=== PATIENT | male | born 1965 | race Caucasian/White ===

== ENCOUNTER → 2018-12-19 | Outpatient (CLI) | payer OTHER ==
[~2018-12-19] MED LIST: ATOR10TA PO; CARV3.12 PO; DIPH360L2 PO; LISI10TA2 PO; MULT1TAB69 PO; WARF-48 PO; WARF10TA44 PO
[2018-12-19 10:04] LABS: ALANINE AMINOTRANSFERASE 24 U/L (0-55); ALBUMIN 4.5 GM/DL (3.2-4.5); ALKALINE PHOSPHATASE 76 U/L (40-136); BILIRUBIN,TOTAL 0.5 MG/DL (0.1-1.0); BUN/CREATININE RATIO 18; CALCIUM 9.2 MG/DL (8.5-10.1); CARBON DIOXIDE 24 MMOL/L (21-32); CHLORIDE 107 MMOL/L (98-107); CHOLESTEROL 140 MG/DL (< 200); CREATININE SERUM 0.79 MG/DL (0.60-1.30); GFR ESTIMATED > 60; GLUCOSE 105 MG/DL (70-105); HDL CHOLESTEROL 45 MG/DL (40-60); POTASSIUM 4.4 MMOL/L (3.6-5.0); SODIUM 138 MMOL/L (135-145); TRIGLYCERIDES 82 MG/DL (<150); VLDL CHOLESTEROL 16 MG/DL (5-40)
== END ==
LOC: CARD 09:27
PROVIDERS: ATTEND Physician Assistant
DX: I10 Essential (primary) hypertension (principal); E78.2 Mixed hyperlipidemia; Z95.2 Presence of prosthetic heart valve; Z86.73 Personal history of transient ischemic attack (TIA), and cerebral infarction without residual deficits
CPT/HCPCS: 36415; 80053; 80061; 93306; 93351

== ENCOUNTER 2018-12-21 10:24 | Day surgery (SDC) | payer OTHER ==
[~2018-12-21] VITALS: Ht 177.8 cm; Wt 88.0 kg
[2018-12-21] VITALS (10 sets, daily range): BP systolic 120–154; BP diastolic 75–95
[2018-12-21] MEDS ORDERED: HEParin (CATH LAB) 2,000 ML IV ONE (10:26)
[2018-12-21] MEDS ORDERED: NS IV 1000 ML 1,000 ML ONE (10:26)
[2018-12-21] MEDS ORDERED: LIDOCAINE 1% INJ 20 ML 20 ML VIAL ONE (10:26)
[2018-12-21] MEDS ORDERED: NS IV 1000 ML 1,000 ML IV SCH ×2 (10:45→14:58)
[2018-12-21 10:59] LABS: BILIRUBIN,URINE NEGATIVE (NEGATIVE); CLARITY,URINE CLEAR; COLOR,URINE YELLOW; GLUCOSE, URINE (UA) NEGATIVE (NEGATIVE); HEMOGLOBIN 16.5 G/DL (13.3-17.7); KETONES,URINE NEGATIVE (NEGATIVE); LEUKOCYTE ESTERASE ,URINE 1+ (NEGATIVE); NITRITE,URINE NEGATIVE (NEGATIVE); PH,URINE 6.5 (5-9); PROTEIN,URINE 1+ (NEGATIVE); RED CELL DISTRIBUTION WIDTH 12.7 % (10.0-14.5); WHITE BLOOD COUNT 5.6 10^3/uL (4.3-11.0)
[2018-12-21] MEDS ORDERED: LISI10TA2 PO (11:05)
[2018-12-21] MEDS ORDERED: ATOR10TA PO (11:05)
[2018-12-21 11:08] LABS: BACTERIA,URINE TRACE /HPF; RBC,URINE RARE /HPF; SQUAMOUS EPITHELIAL CELL,UR RARE /HPF; WBC,URINE RARE /HPF
[2018-12-21] MEDS ORDERED: WARF-48 PO (11:15)
[2018-12-21] MEDS ORDERED: WARF10TA44 PO (11:15)
[2018-12-21] MEDS ORDERED: DIPH360L2 PO (11:15)
[2018-12-21] MEDS ORDERED: MULT1TAB69 PO (11:15)
--- NOTE | 2018-12-21 11:16 | NUR ---
SPOKE WITH PT ( HAD HIS BOTTLES) WELL CALLING [facility] TO COMPLETE THE MED REC. THE WARFARIN DOES IS FOLLOWS: WARFARIN 10MG: WEDNESDAY THRU WEDNESDAY WARFARIN 5MG: WEDNESDAY AND WEDNESDAY THE FOLLOWING ARE FILL DATES FROM [facility]: 09-28-2018 WARFARIN 5MG#30 10-16-2018 ATORVASTATIN #30/30DS 11-11-2018 LISINOPRIL #90/90DS 11-21-2018 WARFARIN 10MG #20 OTC MEDS: MUCINEX LIQUID UD MTV: 1 DAILY
[2018-12-21 11:17] LABS: PROTHROMBIN TIME PATIENT 23.8 SEC (12.2-14.7)
--- NOTE | 2018-12-21 11:19 | Diagnostic Imaging Report ---
INDICATION: Abnormal stress test with hypertension and coronary artery disease. No prior studies are available for comparison. Time of exam 11:08 AM The heart size is normal. There are changes of median sternotomy. No infiltrates are detected. The pulmonary vascularity is normal. No effusion or pneumothorax is seen. IMPRESSION: Status post CABG. No acute feature is detected. Dictated by: Dictated on workstation # [id number]
[2018-12-21 11:31] LABS: ALANINE AMINOTRANSFERASE 38 U/L (0-55); ALBUMIN 4.6 GM/DL (3.2-4.5); ALKALINE PHOSPHATASE 81 U/L (40-136); BILIRUBIN,TOTAL 0.9 MG/DL (0.1-1.0); BUN/CREATININE RATIO 28; CALCIUM 9.4 MG/DL (8.5-10.1); CARBON DIOXIDE 27 MMOL/L (21-32); CHLORIDE 106 MMOL/L (98-107); CHOLESTEROL 155 MG/DL (< 200); CREATININE SERUM 0.79 MG/DL (0.60-1.30); GFR ESTIMATED > 60; GLUCOSE 120 MG/DL (70-105); HDL CHOLESTEROL 42 MG/DL (40-60); POTASSIUM 4.1 MMOL/L (3.6-5.0); SODIUM 142 MMOL/L (135-145); TOTAL PROTEIN 7.4 GM/DL (6.4-8.2); TRIGLYCERIDES 165 MG/DL (<150); VLDL CHOLESTEROL 33 MG/DL (5-40)
[2018-12-21] MEDS ORDERED: fentaNYL INJECTION 100 MCG/2 ML AMP ONE (14:01)
[2018-12-21] MEDS ORDERED: MIDAZOLAM 5 MG/5 ML (VERSED) VIAL ONE (14:01)
[2018-12-21] MEDS ORDERED: HEParin 1000 UNIT/ML (10ML VIAL) FOR BOLUS ONE (14:01)
[2018-12-21] MEDS ORDERED: VERAPAMIL 5 MG/2 ML (CALAN) VIAL IV ONE (14:01)
[2018-12-21] MEDS ORDERED: NITRO DRIP 25000 MCG/D5W 250 ML IV ONE (14:01)
--- NOTE | 2018-12-21 14:58 | Cardiac Procedure Note-CS/ASA ---
Pre-Procedure Note Pre-Op Procedure Note H&P Reviewed The H&P was reviewed, patient examined and no changes noted. Date H&P Reviewed: Dec 21, 2018 Time H&P Reviewed: 14:00 Conscious Sedation Pre-Proced Time 14:00 ASA Score 3 For ASA 3 and 4: Consider anesthesia and medical clearance. Also, for patients with a history of failed moderate sedation consider anesthesia. Airway Lungs Heart ASA score ASA 1: a normal healthy patient ASA 2: a patient with a mild systemic disease (mid diabetes, controlled hypertension, obesity x ASA 3: a patient with a severe systemic disease that limits activity (angina, COPD, prior Myocardial infarction) ASA 4: a patient with an incapacitating disease that is a constant threat to life (CHF, renal failure) ASA 5: a moribund patient not expected to survive 24 hrs. (ruptured aneurysm) ASA 6: a declared brain- patient whose organs are being harvested. For emergent operations, add the letter E after the classification Mallampati Classification Grade 3 Sedation Plan Analgesia, Amnesia, Plan communicated to team members, Discussed options with patient/fam, Discussed risks with patient/fam The patient is an appropriate candidate to undergo the planned procedure, sedation, and anesthesia. The patient immediately re-assessed prior to indication. BRENTON MOSLEY MD Dec 21, 2018 14:58
--- NOTE | 2018-12-21 15:00 | Discharge Inst-Post CATH ---
Discharge Inst-CATH/EP Problems Reviewed?: Yes Post Cardiac Cath/EP D/C Inst Follow Up/Plan Appointment with Dr. MOSLEY's office in 2-4 weeks <b>CARDIAC CATH/EP PROCEDURE DISCHARGE INSTRUCTIONS</b> ACTIVITY * Go Home directly and rest. * Limit activity of the leg (or wrist if it was used) for 7 days including aerobics, swimming, jogging, bicycling, etc. * Restrict stair-climbing for 7 days if possible, if not, climb up with your non-cath leg, then bring together on the same step. * Avoid lifting, pushing, pulling or excessive movement of the affected extremity for 7 days. * Customary sexual activity may be resumed after 2 days-use caution not to use a position that strains or causes pain to the affected extremity. * No driving for 24 hours. * NO SMOKING. * Avoid straining for bowel movements for 7 days. * Gentle walking on level ground is allowed. * Returning to work will depend on the type of procedure and the results. Your doctor will discuss this with you. CALL YOUR DOCTOR FOR ANY OF THE FOLLOWING: *If bleeding from the puncture site occurs- Apply gentle pressure to site with clean cloth and call your doctor or EMS. * If a knot or lump forms under the skin, increases in size, or causes pain. * If bruising appears to be worsening or moving further down your leg instead of disappearing. * Temperature above 101 F. CARE OF YOUR GROIN INCISION; * Bruising or purple discoloration of the skin near the puncture site is common. * You may shower only, no bathtub bathing for 5 days. Be careful to avoid slipping as your leg may feel stiff. * If a closure device was used on your femoral artery, please see the attached guide regarding care of the device and your leg. * Leave dressing on FOR 24 hours. CARE OF YOUR WRIST INCISION; * Bruising or purple discoloration of the skin near the puncture site is common. * You may shower. * DO NOT submerge wrist. * Leave dressing on FOR 24 hours. BRENTON MOSLEY MD Dec 21, 2018 3:00 pm
[2018-12-21] MEDS ORDERED: CARV3.12 PO (15:19)
--- NOTE | 2018-12-21 15:24 | Cardiac Cath Report ---
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 Scheduled for coronary angiogram, I decided to do aortic arch angiogram during the procedure due to the tortuosity during advancement of the wire and catheters. After explaining the procedure to the patient, all pros and cons were explained, all questions were answered. The patient signed the consent and then he was placed on the cardiac catheterization laboratory. Groin was prepped SL fashion local anesthesia was used. Sheath placed in the right radial artery, [place] catheter advanced to the left coronary system, exchanged over a long J-wire into Jayson right catheter, advanced to the right coronary system, angiogram was done, we'll back to the aortic arch and aortic arch angiogram was done. At the end of the procedure sheath was removed, vascular band used, no complication noted FINDINGS: ANATOMY: Left Main is free of obstructive disease Left Anterior Descending has mild disease nonobstructive disease Left Circumflex has mild disease nonobstructive disease Right Coronory Artery has mild disease nonobstructive disease Aortic arch angiogram showed normal aortic arch, no dissection or aneurysm, slightly tortuous innominate artery, nonobstructive disease in the innominate artery, right carotid, left carotid and left subclavian arteries. Fluoroscopy of the aortic valve showed metallic valve in the aortic position functioning normally CONCLUSION: 1. Mild coronary artery disease nonobstructive disease 2. Normal functioning prosthetic aortic valve 3. Normal aortic arch and great vessels of the neck DISCUSSION AND RECOMMENDATION: I will add beta blockers to his current medication, planning to switch lisinopril to Entresto as an outpatient. Anesthesia Type: Conscious Sedation Estimated blood loss (mL): 25 ml Contrast Amount: 48 ml Post-Procedure Diagnosis Post-operative diagnosis: Coronary artery disease Congestive heart failure, chronic compensated left ventricular systolic dysfunction, nonischemic cardiomyopathy Aortic valve replacement Mitral valve replacement BRENTON MOSLEY MD Dec 21, 2018 3:24 pm
== END 2018-12-21 17:50 | disposition home or self-care (01) ==
LOC: CATH 10:24 → SDC 15:13 → CATH 17:50
PROVIDERS: ATTEND Internal Medicine Cardiovascular Disease
DX: I25.10 Atherosclerotic heart disease of native coronary artery without angina pectoris (principal); E78.5 Hyperlipidemia, unspecified; I11.0 Hypertensive heart disease with heart failure; I50.9 Heart failure, unspecified; F17.210 Nicotine dependence, cigarettes, uncomplicated; Z95.2 Presence of prosthetic heart valve; Z88.5 Allergy status to narcotic agent; Z79.01 Long term (current) use of anticoagulants; Z79.899 Other long term (current) drug therapy; Z86.73 Personal history of transient ischemic attack (TIA), and cerebral infarction without residual deficits; Z80.9 Family history of malignant neoplasm, unspecified; Z82.49 Family history of ischemic heart disease and other diseases of the circulatory system; Z83.3 Family history of diabetes mellitus
CPT/HCPCS: 36221; 36415; 71045; 80053; 80061; 81000; 85027; 85610; 85730; 87081; 93454